=== PATIENT | female | born 1955 | race Caucasian/White ===

== ENCOUNTER 2022-02-28 11:30 | Emergency (ER) | payer MEDICARE, BC ==
--- NOTE | 2022-02-28 11:34 | ERPHSYRPT ---
- History of Present Illness Time Seen by Provider: 02/28/22 11:34 Source: patient Exam Limitations: no limitations Physician History: This is a overweight 66-year-old white female who stated that she was laying on her left side and shoulder and noticed left shoulder and left upper arm achiness that woke her up out of sleep. She denies chest pain and she denies shortness of breath. Patient states that she does not recall injuring this area. Because the achiness has persisted, she came to emergency department for evaluation. Occurred: this morning Method of Injury: other (Patient believes that she slept on the left side oddly) Quality: constant, aching Extremities Pain Location: shoulder: left, arm: left Modifying Factors: Improves With: movement Associated Symptoms: none, No chest discomfort, No chest pain, No dyspnea, No short of breath Allergies/Adverse Reactions: No Known Drug Allergies Allergy (Verified 02/28/22 11:40) Home Medications: Allopurinol 300 mg [Zyloprim 300 mg] 1 tab PO DAILY 02/28/22 [History] Aspirin EC 81 mg [Ecotrin 81 mg] 1 tab PO DAILY 02/28/22 [History] Atorvastatin Calcium [Lipitor] 1 tab PO DAILY 02/28/22 [History] Duloxetine HCl 30 mg [Cymbalta 30 MG Capsule] 60 mg PO DAILY 02/28/22 [History] lisinopriL [Zestril] 1 tab PO BID 02/28/22 [History] Travel Risk - International Travel Have you traveled outside of the country in past 3 weeks: No - Coronavirus Screening Are you exhibiting any of the following symptoms?: No Close contact with a COVID-19 positive Pt in past 14-21 Days: No - Review of Systems Constitutional: No Symptoms Eyes: No Symptoms Ears, Nose, & Throat: No Symptoms Respiratory: No Symptoms Cardiac: No Symptoms Abdominal/Gastrointestinal: No Symptoms Genitourinary Symptoms: No Symptoms Musculoskeletal: Arthralgias, Myalgias Skin: No Symptoms Neurological: No Symptoms Psychological: No Symptoms Endocrine: No Symptoms Hematologic/Lymphatic: No Symptoms Immunological/Allergic: No Symptoms All Other Systems: Reviewed and Negative - Past Medical History Neurological History: No Pertinent History Cardiac History: Hypertension Respiratory History: Asthma Endocrine Medical History: No Pertinent History Musculoskeletal History: Arthritis Other Medical History: NOTES SHE NEEDS A R TKA, BUT DX WITH LUNG CA. HX OF TWO STEROID INJECTIONS, A FILLER INJECTION WITHOUT PN RELIEF. - Nursing Vital Signs Nursing Vital Signs: Initial Vital Signs Temperature 97.7 F 02/28/22 11:41 Pulse Rate 63 02/28/22 11:41 Respiratory Rate 16 02/28/22 11:41 Blood Pressure 169/74 02/28/22 11:41 O2 Sat by Pulse Oximetry 97 02/28/22 11:41 Pain Scale Pain Intensity 8 - Physical Exam General Appearance: no apparent distress, alert, anxiety, obese Eyes, Ears, Nose, Throat Exam: normal ENT inspection, moist mucous membranes Neck Exam: normal inspection, non-tender, supple, full range of motion Cardiovascular/Respiratory Exam: chest non-tender, normal breath sounds, regular rate/rhythm, heart sounds normal, no ecchymosis, no respiratory distress Abdominal Exam: non-tender Back Exam: normal inspection, normal range of motion, No CVA tenderness, No vertebral tenderness Shoulder Exam: normal inspection, no evidence of injury, normal ROM, soft tissue tenderness (To palpation) Elbow/Forearm Exam: normal inspection, non-tender, no evidence of injury, normal ROM Wrist Exam: normal inspection, non-tender, no evidence of injury, normal ROM Hand Exam: normal inspection, non-tender, no evidence of injury, normal ROM Neuro/Tendon Exam: normal sensation, normal motor functions, normal tendon functions, no evidence tendon injury Mental Status Exam: alert, oriented x 3, cooperative Skin Exam: normal color, warm, dry SpO2 Interpretation: normal O2 Delivery: Room Air Ordered Tests: Active Orders 24 hr Category Date Time Status EKG-ER Only STAT Care 02/28/22 11:51 Active HUMERUS Stat Exams 02/28/22 12:11 Completed SHOULDER Stat Exams 02/28/22 11:52 Completed CBC W DIFF Stat Lab 02/28/22 12:15 Completed CMP Stat Lab 02/28/22 12:15 Completed TROPONIN Q4H Lab 02/28/22 12:15 Received TROPONIN Q4H Lab 02/28/22 16:00 Ordered TROPONIN Q4H Lab 02/28/22 20:00 Ordered Lab/Rad Data: Laboratory Result Diagrams 02/28/22 12:15 02/28/22 12:15 Laboratory Results 02/28/22 02/28/22 Range/Units 12:15 12:15 WBC 8.2 (4.0-10.5) x10^3/uL RBC 4.18 (4.1-5.4) x10^6/uL Hgb 12.4 (12.0-16.0) g/dL Hct 38.3 (35-47) % MCV 91.6 (78-100) fL MCH 29.7 (26-32) pg MCHC 32.4 (32-36) g/dL RDW 13.6 (11.5-14.0) % Plt Count 239 (150-450) x10^3/uL MPV 9.4 (7.5-11.0) fL Gran % 47.4 (36.0-66.0) % Immature Gran % (Auto) 0.2 (0.00-0.4) % Nucleat RBC Rel Count 0.0 (0.00-0.1) % Eos # (Auto) 0.37 (0-0.5) x10^3/uL Immature Gran # (Auto) 0.02 (0.00-0.03) x10^3u/L Absolute Lymphs (auto) 3.28 (1.0-4.6) x10^3/uL Absolute Monos (auto) 0.61 (0.0-1.3) x10^3/uL Absolute Nucleated RBC 0.00 (0.00-0.01) x10^3u/L Lymphocytes % 39.8 (24.0-44.0) % Monocytes % 7.4 (0.0-12.0) % Eosinophils % 4.5 (0.00-5.0) % Basophils % 0.7 (0.0-0.4) % Absolute Granulocytes 3.90 (1.4-6.9) x10^3/uL Basophils # 0.06 (0-0.4) x10^3/uL Sodium 141 (137-145) mmol/L Potassium 4.2 (3.5-5.1) mmol/L Chloride 108 H (98-107) mmol/L Carbon Dioxide 27 (22-30) mmol/L Anion Gap 10.7 (5-15) MEQ/L BUN 8 (7-17) mg/dL Creatinine 0.61 (0.52-1.04) mg/dL Estimated GFR > 60.0 ML/MIN Glucose 96 (74-106) mg/dL Calcium 9.4 (8.4-10.2) mg/dL Total Bilirubin 0.80 (0.2-1.3) mg/dL AST 19 (14-36) U/L ALT 21 (0-35) U/L Alkaline Phosphatase 99 (38-126) U/L Serum Total Protein 7.3 (6.3-8.2) g/dL Albumin 4.2 (3.5-5.0) g/dL - Progress Progress: unchanged Progress Note: 02/28/22 12:45 X-ray of the left shoulder shows mild chronic rotator cuff disease. There is also mild to moderate osteoarthritis and spurring of the AC joint. X-ray of the left humerus is negative Counseled pt/family regarding: lab results, diagnosis, need for follow-up, rad results - Departure Departure Disposition: Home Clinical Impression: Rotator cuff (capsule) sprain Condition: Stable Critical Care Time: No Referrals: WILLI CID [Primary Care Provider] - Follow up/PCP as directed Additional Instructions: Take the medication as prescribed. Follow-up with the [facility] orthopedic clinic tomorrow between 8 and 10 AM. No appointment is necessary. It is a walk-in clinic. Your other option is to follow-up with an orthopedic surgeon of choice. Prescriptions: Cyclobenzaprine HCl 10 mg [Cyclobenzaprine 10 MG] 10 mg PO TID #10 tablet Prednisone 10 mg [Deltasone 10 mg] 10 mg PO TID #12 tablet
[2022-02-28 12:00] VITALS: O2SAT 97
[2022-02-28 12:28] LABS: Basophil (Absolute #) 0.06 x10^3/uL (0-0.4); Eosinophil % 4.5 % (0.00-5.0); Eosinophil (Absolute #) 0.37 x10^3/uL (0-0.5); Hematocrit 38.3 % (35-47); Hemoglobin 12.4 g/dL (12.0-16.0); Lymphocyte (Absolute #) 3.28 x10^3/uL (1.0-4.6); Lymphocytes % 39.8 % (24.0-44.0); Mean Cell Volume 91.6 fL (78-100); Mean Corpuscular Hemoglobin 29.7 pg (26-32); Mean Corpuscular Hgb Concent. 32.4 g/dL (32-36); Mean Platelet Volume 9.4 fL (7.5-11.0); Monocyte (Absolute #) 0.61 x10^3/uL (0.0-1.3); Monocytes % 7.4 % (0.0-12.0); Neutrophil % 47.4 % (36.0-66.0); Platelet Count 239 x10^3/uL (150-450); Red Blood Count 4.18 x10^6/uL (4.1-5.4); Red Cell Distribution Width 13.6 % (11.5-14.0); White Blood Count 8.2 x10^3/uL (4.0-10.5)
[2022-02-28 12:35] LABS: ALBUMIN 4.2 g/dL (3.5-5.0); ALKALINE PHOSPHATASE 99 U/L (38-126); ANION GAP 10.7 MEQ/L (5-15); BLOOD UREA NITROGEN 8 mg/dL (7-17); CHLORIDE 108 mmol/L (98-107); Calcium 9.4 mg/dL (8.4-10.2); Carbon Dioxide 27 mmol/L (22-30); Creatinine 1 0.61 mg/dL (0.52-1.04); EST GLOMERULAR FILTRATION RATE > 60.0 ML/MIN; Glucose 96 mg/dL (74-106); Potassium 4.2 mmol/L (3.5-5.1); SGOT/AST 19 U/L (14-36); SGPT/ALT 21 U/L (0-35); SODIUM 141 mmol/L (137-145); Total Protein 7.3 g/dL (6.3-8.2)
--- NOTE | 2022-02-28 12:37 | XRAY ---
Exam: 3 view left shoulder series from 02/28/2022. Comparison: None: Left shoulder pain for 2 days; no known injury. Indication: 66-year-old female with left shoulder pain for 2 days; no known injury. Findings: AP internal rotation, AP external rotation, and Y views of the left shoulder were obtained. I see no acute left shoulder fracture or dislocation. There is minimal elevation of the left humeral head with respect to the glenoid and acromion which may possibly be due to chronic rotator cuff disease. No abnormal soft tissue calcifications are seen adjacent to the left humeral head. There is mild to moderate osteoarthritis affecting the left acromioclavicular joint. The left clavicle appears intact. The left upper lung field appears clear. Impression: 1. No acute fracture or dislocation of the left shoulder is seen. 2. Findings suggestive of mild chronic rotator cuff disease. 3. I note mild to moderate osteoarthritis with spurring of the left acromioclavicular joint.
--- NOTE | 2022-02-28 12:39 | XRAY ---
Exam: Two-view left humerus study from 02/28/2022. Comparison: None. Indication: 66-year-old female with pain for 2 days; no known injury; most of her pain is in the distal left humerus region. Findings: AP internal rotation and AP external rotation images of the left humerus were obtained. I see no acute fracture or other significant focal bone lesion. The left elbow joint space appears unremarkable. The soft tissues reveal no significant abnormality. Impression: 1. Negative study.
[2022-02-28 12:52] VITALS: BP 168/78; PULSE 57
== END 2022-02-28 12:58 | disposition home or self-care (01) ==
LOC: ED 11:30
DX: S43.422A Sprain of left rotator cuff capsule, initial encounter (principal); X50.1XXA Overexertion from prolonged static or awkward postures, initial encounter; Y93.84 Activity, sleeping; Y92.003 Bedroom of unspecified non-institutional (private) residence as the place of occurrence of the external cause; Z79.899 Other long term (current) drug therapy; Z79.52 Long term (current) use of systemic steroids; I10 Essential (primary) hypertension
CPT/HCPCS: 36415; 73030; 73060; 80053; 84484; 85025; 93005; 99283